=== PATIENT | female | born 1995 | race Caucasian/White ===

== ENCOUNTER 2021-03-09 21:13 | Emergency (ER) | payer OTHER ==
[~2021-03-09] VITALS: Ht 160 cm; Wt 56.7 kg
[2021-03-09] MEDS ORDERED: bupropion (22:51)
[2021-03-10] MEDS ORDERED: ALBU6.7H9 INH (00:10)
[2021-03-10] MEDS ORDERED: FLUT16SP16 NS (00:10)
[2021-03-10] MEDS ORDERED: ONDA4TAB5 PO (00:10)
[2021-03-10] MEDS ORDERED: OXYC-128 PO (00:10)
--- NOTE | 2021-03-10 00:20 | NUR ---
Patient discharged to home in stable condition. Written and verbal after care instructions given. Patient verbalizes understanding of instructions. Stressed follow up or return to ER for worsening s/s.
[2021-03-10 00:24] VITALS: BP 108/75
== END 2021-03-10 00:24 | disposition home or self-care (01) ==
LOC: ER 21:15
DX: S00.11XA Contusion of right eyelid and periocular area, initial encounter (principal); Y04.2XXA Assault by strike against or bumped into by another person, initial encounter; Y92.89 Other specified places as the place of occurrence of the external cause; J32.9 Chronic sinusitis, unspecified; J45.909 Unspecified asthma, uncomplicated; Z88.1 Allergy status to other antibiotic agents; Z88.0 Allergy status to penicillin
CPT/HCPCS: A4663